=== PATIENT | female | born 1985 | race Caucasian/White ===

== ENCOUNTER 2018-04-16 07:02 | Day surgery (SDC) | payer OTHER ==
[~2018-04-16] VITALS: Ht 160 cm; Wt 97.0 kg
[2018-04-16] MEDS ORDERED: LIDOCAINE 2% 30 ML JELLY TP ONE (07:03)
[2018-04-16] MEDS ORDERED: BENZOCAINE 20% 50 MCG/SPRAY 57 GM TP ONE (07:03)
[2018-04-16] MEDS ORDERED: ALBUTEROL SULFATE 2.5 MG/0.5 ML NEB SOLUTION NEB ONE (07:03)
[2018-04-16] MEDS ORDERED: LIDOCAINE 4% 50 ML SOLUTION TP ONE (07:03)
[2018-04-16] MEDS ORDERED: FentaNYL CITRATE-PF 100 MCG/2 ML VIAL ONE (07:57)
[2018-04-16] MEDS ORDERED: MIDAZOLAM HCL 2 MG/2 ML VIAL ONE (07:57)
[2018-04-16] MEDS ORDERED: SODIUM CHLORIDE 0.9% 1,000 ML IV ONE (08:01)
[2018-04-16] MEDS: SODIUM CHLORIDE 0.9% 1,000 ML IV ONE (08:32)
[2018-04-16] MEDS ORDERED: MethylPREDNISolone SOD SUCC 125 MG/2 ML VIAL ONE (09:52)
[2018-04-16] MEDS: MethylPREDNISolone SOD SUCC 125 MG/2 ML VIAL IVP ONE (09:53)
[2018-04-16] MEDS ORDERED: PROP10TA73 PO (10:41)
[2018-04-16] MEDS ORDERED: BACL10TA PO (10:41)
[2018-04-16] MEDS ORDERED: SERT100T12 PO (10:41)
[2018-04-16] MEDS ORDERED: HYDR-4455 PO (10:41)
[2018-04-16] MEDS ORDERED: HYDR200T4 PO (10:41)
[2018-04-16] MEDS ORDERED: ALBU8HFA IH (10:41)
[2018-04-16] MEDS ORDERED: OXYGEN THERAPY IH SCH (20:00)
== END 2018-04-16 10:55 | disposition home or self-care (01) ==
LOC: SURGERY 07:02
PROVIDERS: ATTEND Internal Medicine Critical Care Medicine
DX: J38.4 Edema of larynx (principal); B37.0 Candidal stomatitis; J45.909 Unspecified asthma, uncomplicated; Z79.899 Other long term (current) drug therapy
CPT/HCPCS: 31623; 31624; 71045; 84703; 87015; 87070; 87205; 87206; 87220; 88108; 88312; J2250; J2930; J3010; J7030

== ENCOUNTER 2022-12-05 06:36 | Day surgery (SDC) | payer OTHER ==
[~2022-12-05] VITALS: Ht 157.5 cm; Wt 127.2 kg
[~2022-12-05 06:36] MED LIST: ALBU18HF12 IH; ARIP10TA38 PO; ASCO500T20 PO; CETI10TA58 PO; CHOL200059 PO; CYAN-53 PO; FLUT16H NASAL; GABA600T10 PO; IPRA3AMP24 NEB; MONT-40 PO; NIFE-79 PO; OMEP20CA12 PO; PREN1TAB26 PO; SERT-162 PO; SUCR1TAB PO; THIA100T92 PO
[2022-12-05] MEDS ORDERED: LIDOCAINE 4% 50 ML SOLUTION TP ONE (06:37)
[2022-12-05] MEDS ORDERED: LIDOCAINE 2% 11 ML JELLY TP ONE (06:37)
[2022-12-05] MEDS ORDERED: ALBUTEROL SULFATE 2.5 MG/0.5 ML NEB SOLUTION NEB ONE (06:37)
[2022-12-05] MEDS ORDERED: BENZOCAINE 20% 50 MCG/SPRAY 57 GM TP ONE (06:37)
[2022-12-05] MEDS ORDERED: PROP10TA73 PO (07:33)
[2022-12-05] MEDS ORDERED: SODIUM CHLORIDE 0.9% 1,000 ML ONE (07:37)
[2022-12-05] MEDS ORDERED: FOLI-130 PO (07:39)
[2022-12-05] MEDS ORDERED: SUMA100T21 PO (07:40)
[2022-12-05] MEDS ORDERED: METR45CR9 TP (07:41)
[2022-12-05] MEDS ORDERED: HYDR200T83 PO (07:43)
[2022-12-05] MEDS ORDERED: AMLO-257 PO (07:43)
[2022-12-05] MEDS ORDERED: NITR1OIN TP (07:44)
[2022-12-05] MEDS ORDERED: MOME13HF11 IH (07:45)
[2022-12-05] MEDS ORDERED: DICL100G60 TP (07:47)
[2022-12-05] MEDS ORDERED: MIDAZOLAM HCL 2 MG/2 ML VIAL ONE (08:41)
[2022-12-05] MEDS ORDERED: FentaNYL CITRATE PF 100 MCG/2 ML VIAL ONE (08:42)
[2022-12-05] MEDS ORDERED: SODIUM CHLORIDE 0.9% 1,000 ML IV ONE (09:00)
[2022-12-05 09:15] VITALS: PULSE 61; RESP 12; O2SAT 100
[2022-12-05] MEDS ORDERED: MethylPREDNISolone SOD SUCC 125 MG/2 ML VIAL ONE (09:15)
[2022-12-05] MEDS ORDERED: MethylPREDNISolone SOD SUCC 125 MG/2 ML VIAL IVP ONE (09:45)
== END 2022-12-05 11:10 | disposition home or self-care (01) ==
LOC: SURGERY 06:36
PROVIDERS: ATTEND Internal Medicine Critical Care Medicine
DX: J38.4 Edema of larynx (principal); B37.0 Candidal stomatitis; G47.30 Sleep apnea, unspecified; Z98.84 Bariatric surgery status; G89.29 Other chronic pain; Z98.890 Other specified postprocedural states; Z87.01 Personal history of pneumonia (recurrent); Z79.899 Other long term (current) drug therapy
CPT/HCPCS: 31623; 88112; 84703; 87206; 87101; 87220; 87015; 87070; 31624; 36415; 94640; 71045; J3010; J2250; J2930; Q9967; J7030; J7613; Z7610

== ENCOUNTER 2023-11-13 07:01 | Day surgery (SDC) | payer OTHER ==
[~2023-11-13] VITALS: Ht 157.5 cm; Wt 136.4 kg
[~2023-11-13 07:01] MED LIST changes: +AMLO-257 PO; +AZEL137S8 NASAL; +CALC200T31 PO; +DICL100G60 TP; +FLUT12AE3 IH; -FLUT16H NASAL; +FOLI-130 PO; +HYDR200T83 PO; -NIFE-79 PO; +PROP20TA96 PO; +SODIUM CHLORIDE 0.9% 1,000 ML ONE; -SUCR1TAB PO; +SUCR1TAB2 PO; +SUMA100T21 PO
[2023-11-13] MEDS ORDERED: LIDOCAINE 2% 11 ML JELLY TP ONE (07:02)
[2023-11-13] MEDS ORDERED: BENZOCAINE 20% 50 MCG/SPRAY 57 GM TP ONE (07:02)
[2023-11-13] MEDS ORDERED: LIDOCAINE 4% 50 ML SOLUTION TP ONE (07:02)
[2023-11-13] MEDS ORDERED: MIDAZOLAM HCL 2 MG/2 ML VIAL ONE (07:46)
[2023-11-13] MEDS ORDERED: FentaNYL CITRATE PF 100 MCG/2 ML VIAL ONE (07:46)
[2023-11-13] MEDS: SODIUM CHLORIDE 0.9% 1,000 ML IV ONE (08:36)
[2023-11-13 09:15] VITALS: PULSE 67; RESP 20; O2SAT 99
[2023-11-13] MEDS ORDERED: MethylPREDNISolone SOD SUCC 125 MG/2 ML VIAL ONE (09:23)
[2023-11-13] MEDS: MethylPREDNISolone SOD SUCC 125 MG/2 ML VIAL IVP ONE (09:40)
== END 2023-11-13 11:16 | disposition home or self-care (01) ==
LOC: SURGERY 07:01
PROVIDERS: ATTEND Internal Medicine Critical Care Medicine
DX: R05.3 Chronic cough (principal); B37.0 Candidal stomatitis; J38.4 Edema of larynx; R06.2 Wheezing; J98.09 Other diseases of bronchus, not elsewhere classified; J84.10 Pulmonary fibrosis, unspecified; J98.8 Other specified respiratory disorders; R06.00 Dyspnea, unspecified; G47.30 Sleep apnea, unspecified; I10 Essential (primary) hypertension; Z85.21 Personal history of malignant neoplasm of larynx; Z79.899 Other long term (current) drug therapy; Z90.89 Acquired absence of other organs; Z98.890 Other specified postprocedural states; Z91.09 Other allergy status, other than to drugs and biological substances
CPT/HCPCS: 31623; 84703; 87206; 87101; 87220; 87070; 88108; 31624; 71045; 87015; J3010; J2250; J2919; J7030; Z7610